=== PATIENT | male | born 1975 | race Caucasian/White ===

== ENCOUNTER 2019-01-26 11:57 | Emergency (ER) | payer SELFPAY ==
[2019-01-26] MEDS ORDERED: Ketorolac 60 MG/2 ML SDV IM ONE (12:17)
[2019-01-26] MEDS ORDERED: Ondansetron 4 MG Tab.DIS PO ONE (12:20)
--- NOTE | 2019-01-26 12:26 | EDM.PDOC ---
ED HPI GENERAL MEDICAL PROBLEM - General Chief Complaint: Abdominal Pain Stated Complaint: LOTS OF PAIN IN ??? Time Seen by Provider: 01/26/19 12:15 Source of Information: Reports: Patient, Old Records, RN History Limitations: Reports: No Limitations - History of Present Illness INITIAL COMMENTS - FREE TEXT/NARRATIVE: 43 yo male presents with LLQ abdominal pain that radiates from his L flank to his L testicle. Has nausea without vomiting. No fever. Pain began about a week ago and was intermittent initially, now constant since 0300h today. No hx of kidney stones. Pain not worse with coughing. Onset: Gradual Onset Date: 01/19/19 Duration: Week(s): (1), Constant (today only, was intermittent before that. ), Getting Worse Location: Reports: Abdomen (L sided), Pelvis (radiates to L testicle. ) Quality: Reports: Ache Severity: Moderate Improves with: Reports: Rest Worsens with: Reports: Movement (or lying) Associated Symptoms: Reports: Nausea/Vomiting (no vomiting). Denies: Cough, Fever/Chills, Rash, Shortness of Breath Treatments EVENT ORGANIZER: Reports: Other (see below) (none) Right Lower Abdomen Pain Score (Numeric/FACES): 10 Left Abdomen Pain Score (Numeric/FACES): 10 - Related Data Allergies Allergy/AdvReac Type Severity Reaction Status Date / Time sulfamethoxazole Allergy Rash Verified 01/26/19 12:11 [From Bactrim] trimethoprim [From Bactrim] Allergy Rash Verified 01/26/19 12:11 Home Meds: Home Meds traMADol [Ultram] 50 mg PO Q6H PRN 12/31/14 [History] Past Medical History Gastrointestinal History: Reports: Gastritis, GERD Genitourinary History: Reports: Prostate Disorder Psychiatric History: Reports: Anxiety - Past Surgical History Other Male Surgeries/Procedures: perineal cyst removal Social & Family History - Tobacco Use Smoking Status *Q: Current Every Day Smoker Years of Tobacco use: 20 Packs/Tins Daily: 1 - Caffeine Use Caffeine Use: Reports: Coffee, Soda - Recreational Drug Use Recreational Drug Use: No ED ROS GENERAL - Review of Systems Review Of Systems: See Below Constitutional: Reports: No Symptoms HEENT: Reports: No Symptoms Respiratory: Reports: No Symptoms Cardiovascular: Reports: No Symptoms GI/Abdominal: Reports: Abdominal Pain (L sided), Nausea. Denies: Black Stool, Bloody Stool, Constipation, Diarrhea, Distension, Hematemesis, Hematochezia, Melena, Vomiting : Reports: Flank Pain (L flank), Other (L testicle tender) Musculoskeletal: Reports: No Symptoms Skin: Reports: No Symptoms Neurological: Reports: No Symptoms ED EXAM, GI/ABD - Physical Exam Exam: See Below Exam Limited By: No Limitations General Appearance: Alert, WD/WN, Mild Distress Eyes: Bilateral: Normal Appearance Ears: Normal External Exam, Normal Canal, Hearing Grossly Normal Nose: Normal Inspection, No Blood Throat/Mouth: Normal Inspection, Normal Oropharynx, Normal Voice, No Airway Compromise, Other (poor dentition). No: Normal Teeth Head: Atraumatic, Normocephalic Neck: Normal Inspection Respiratory/Chest: No Respiratory Distress, Lungs Clear, Normal Breath Sounds, No Accessory Muscle Use Cardiovascular: Regular Rate, Rhythm, No Edema GI/Abdominal Exam: Normal Bowel Sounds, Soft, No Distention, Rebound, Tender ( LLQ). No: Non-Tender, Distended, Guarding, Rigid, Hernia, Mass Back Exam: Normal Inspection Extremities: Normal Inspection, Normal Range of Motion, Non-Tender, No Pedal Edema Neurological: Alert, Oriented, CN II-XII Intact, Normal Cognition, No Motor/ Sensory Deficits Psychiatric: Normal Affect, Normal Mood Skin Exam: Warm, Dry, Intact, Normal Color, No Rash Course - Vital Signs Text/Narrative:: Declined CT for now due to no insurance. Last Recorded V/S: Last Vital Signs Temp 35.4 C 01/26/19 12:10 Pulse 88 01/26/19 13:22 Resp 18 01/26/19 13:22 BP 125/88 01/26/19 13:22 Pulse Ox 99 01/26/19 13:22 - Orders/Labs/Meds Orders: Active Orders 24 hr Category Date Time Status Abdomen Pelvis wo Cont [CT] Stat Exams 01/26/19 14:36 Stop Req Labs: Laboratory Tests 01/26/19 01/26/19 01/26/19 Range/Units 12:25 12:25 14:07 WBC 11.0 (4.5-11.0) K/uL RBC 4.66 (4.30-5.90) M/uL Hgb 14.0 (12.0-15.0) g/dL Hct 40.4 (40.0-54.0) % MCV 87 (80-98) fL MCH 30 (27-31) pg MCHC 35 (32-36) % Plt Count 121 L (150-400) K/uL Sodium 136 L (140-148) mmol/L Potassium 4.4 (3.6-5.2) mmol/L Chloride 102 (100-108) mmol/L Carbon Dioxide 24 (21-32) mmol/L Anion Gap 14.4 H (5.0-14.0) mmol/L BUN 19 H (7-18) mg/dL Creatinine 0.9 (0.8-1.3) mg/dL Est Cr Clr Drug Dosing 122.07 mL/min Estimated GFR (MDRD) > 60 (>60) Glucose 140 H (74-106) mg/dL Calcium 8.9 (8.5-10.1) mg/dL C-Reactive Protein 0.10 (0.0-0.3) mg/dL Urine Color Yellow (YELLOW) Urine Appearance Clear (CLEAR) Urine pH 7.0 (5.0-8.0) Ur Specific [place] 1.025 (1.008-1.030) Urine Protein Negative (NEGATIVE) mg/dL Urine Glucose (UA) Negative (NEGATIVE) mg/dL Urine Ketones Trace H (NEGATIVE) mg/dL Urine Occult Blood Trace-intact H (NEGATIVE) Urine Nitrite Negative (NEGATIVE) Urine Bilirubin Negative (NEGATIVE) Urine Urobilinogen 0.2 (0.2-1.0) EU/dL Ur Leukocyte Esterase Negative (NEGATIVE) Urine RBC 5-10 H (0-5) Urine WBC 0-5 (0-5) Ur Epithelial Cells Few Amorphous Sediment Few Urine Bacteria Rare Urine Mucus Few Meds: Medications Discontinued Medications Generic Name Dose Route Start Last Admin Trade Name Freq PRN Reason Stop Dose Admin Ketorolac Tromethamine 60 mg 01/26/19 12:17 01/26/19 12:24 Toradol IM 01/26/19 12:18 60 mg ONETIME ONE Administration Ondansetron HCl 4 mg 01/26/19 12:20 01/26/19 12:24 Zofran Odt PO 01/26/19 12:21 4 mg ONETIME ONE Administration Oxycodone/Acetaminophen 1 tab 01/26/19 14:27 01/26/19 14:42 Percocet 325-5 Mg PO 01/26/19 14:28 1 tab ONETIME ONE Administration Departure - Departure Time of Disposition: 14:45 Disposition: Home, Self-Care 01 Condition: Fair Clinical Impression: Ureterolithiasis - Discharge Information *PRESCRIPTION DRUG MONITORING PROGRAM REVIEWED*: No *COPY OF PRESCRIPTION DRUG MONITORING REPORT IN PATIENT DONALD: No Instructions: Kidney Stones, [id number] Referrals: Deedee Lanza PA [Primary Care Provider] - Forms: ED Department Discharge Additional Instructions: Drink ample fluids. Strain your urine and save any sediment. Take ibuprofen 600 mg every 6 hrs with food starting after 7:30 pm tonight. For added relief use either extra strength acetaminophen OR Leroy. Also, take Flomax once a day to make stone passage easier. Recheck in the clinic in 2 days, turn in your stone for testing through your doctor. - My Orders Last 24 Hours: My Active Orders 01/26/19 14:36 Abdomen Pelvis wo Cont [CT] Stat - Assessment/Plan Last 24 Hours: My Active Orders 01/26/19 14:36 Abdomen Pelvis wo Cont [CT] Stat
[2019-01-26 13:24] VITALS: BP 125/88; PULSE 88
[2019-01-26] MEDS ORDERED: Acetaminophen/oxyCODONE 325-5 MG Tab PO ONE (14:27)
== END 2019-01-26 15:07 | disposition home or self-care (01) ==
LOC: JP.ED 11:57
DX: N20.1 Calculus of ureter (principal); F17.210 Nicotine dependence, cigarettes, uncomplicated; Z88.2 Allergy status to sulfonamides; Z88.1 Allergy status to other antibiotic agents
CPT/HCPCS: 36415; 80048; 81001; 85027; 86140; 96372; 99284; A9270; J1885; 99283

== ENCOUNTER 2019-12-07 04:25 | Emergency (ER) | payer SELFPAY ==
[2019-12-07 04:39] VITALS: BP 147/104; PULSE 84
[2019-12-07] MEDS ORDERED: Ketorolac 30 MG/ML SDV IVPUSH ONE (04:50)
[2019-12-07] MEDS ORDERED: Sodium Chloride 0.9% 10 ML Syringe FLUSH PRN (04:50)
[2019-12-07] MEDS ORDERED: Sodium Chloride 0.9% 1,000 ML IV ONE (04:52)
[2019-12-07] MEDS ORDERED: Acetaminophen/HYDROcodone 325-5 MG Tab PO ONE (06:04)
--- NOTE | 2019-12-07 06:10 | EDM.PDOC ---
ED HPI GENERAL MEDICAL PROBLEM - General Chief Complaint: Abdominal Pain Stated Complaint: ABD PAIN Time Seen by Provider: 12/07/19 04:40 Source of Information: Reports: Patient, Old Records History Limitations: Reports: No Limitations - History of Present Illness INITIAL COMMENTS - FREE TEXT/NARRATIVE: Rik presents with acute onset of right abdominal and flank pain radiating into his groin. He does have a history for recent antibiotic use for an infected tooth 3 weeks ago, but denies any nausea, vomiting, or diarrhea. He denies any urgency, frequency or burning with urination. He also has a past medical history for ureterolithiasis last year. Onset: Sudden Duration: Getting Worse Location: Reports: Abdomen, Radiates to (groin and right testicle) Quality: Reports: Ache, Sharp, Throbbing Severity: Severe Improves with: Reports: None Worsens with: Reports: Movement Associated Symptoms: Reports: Diaphoresis Right Abdominal Pain Score (Numeric/FACES): 10 - Related Data Allergies Allergy/AdvReac Type Severity Reaction Status Date / Time sulfamethoxazole Allergy Rash Verified 12/07/19 04:32 [From Bactrim] trimethoprim [From Bactrim] Allergy Rash Verified 12/07/19 04:32 Home Meds: Home Meds traMADol [Ultram] 50 mg PO Q6H PRN 12/31/14 [History] Ondansetron [Zofran ODT] 4 mg PO Q6H PRN #7 tab.dis 01/26/19 [Rx] Past Medical History HEENT History: Reports: Impaired Vision Gastrointestinal History: Reports: Gastritis, GERD Genitourinary History: Reports: Prostate Disorder, Renal Calculus Psychiatric History: Reports: Anxiety - Infectious Disease History Infectious Disease History: Reports: Chicken Pox - Past Surgical History Other Male Surgeries/Procedures: perineal cyst removal Social & Family History - Tobacco Use Smoking Status *Q: Current Every Day Smoker Years of Tobacco use: 20 Packs/Tins Daily: 1 - Caffeine Use Caffeine Use: Reports: Coffee, Soda - Recreational Drug Use Recreational Drug Use: No ED ROS GENERAL - Review of Systems Review Of Systems: See Below Constitutional: Reports: No Symptoms HEENT: Reports: No Symptoms Respiratory: Reports: No Symptoms Cardiovascular: Reports: No Symptoms Endocrine: Reports: No Symptoms GI/Abdominal: Reports: Abdominal Pain (right flank, RLQ) : Reports: Flank Pain, Pain Musculoskeletal: Reports: No Symptoms Skin: Reports: No Symptoms Neurological: Reports: No Symptoms Psychiatric: Reports: No Symptoms Hematologic/Lymphatic: Reports: No Symptoms Immunologic: Reports: No Symptoms ED EXAM, RENAL/ - Physical Exam Exam: See Below Exam Limited By: No Limitations General Appearance: Anxious, Moderate Distress Throat/Mouth: Normal Inspection, Normal Lips, Normal Teeth, Normal Oropharynx, Normal Voice, No Airway Compromise Head: Atraumatic, Normocephalic Neck: Normal Inspection, Supple, Non-Tender, Full Range of Motion Respiratory/Chest: No Respiratory Distress, Lungs Clear, Normal Breath Sounds, No Accessory Muscle Use, Chest Non-Tender Cardiovascular: Normal Peripheral Pulses, Regular Rate, Rhythm, No Edema, No Murmur GI/Abdominal: Normal Bowel Sounds, Guarding (RUQ, RLQ), Tender. No: Rigid, Rebound (Male) Exam: Deferred Rectal (Males) Exam: Deferred Back Exam: Normal Inspection, Full Range of Motion, CVA Tenderness (R) Extremities: Normal Inspection, Normal Range of Motion, Non-Tender Neurological: Alert, Oriented, Normal Cognition, No Motor/Sensory Deficits Psychiatric: Normal Affect, Anxious Skin Exam: Warm, Dry, Intact, Normal Color, No Rash Lymphatic: No Adenopathy Course - Vital Signs Last Recorded V/S: Last Vital Signs Temp 36.7 C 12/07/19 04:39 Pulse 84 12/07/19 04:39 Resp 18 12/07/19 04:39 BP 147/104 H 12/07/19 04:39 Pulse Ox 100 12/07/19 04:39 - Orders/Labs/Meds Orders: Active Orders 24 hr Category Date Time Status Abdomen Pelvis wo Cont [CT] Stat Exams 12/07/19 04:50 Taken UA W/MICROSCOPIC [URIN] Stat Lab 12/07/19 05:45 Ordered Acetaminophen/HYDROcodone [[place] 325-5 MG] Med 12/07/19 06:04 Once 1 tab PO ONETIME ONE Sodium Chloride 0.9% [Saline Flush] Med 12/07/19 04:50 Active 10 ml FLUSH ASDIRECTED PRN Saline Lock Insert [OM.PC] Routine Oth 12/07/19 04:50 Ordered Medication Orders Sodium Chloride (Saline Flush) 10 ml FLUSH ASDIRECTED PRN PRN Reason: Keep Vein Open Last Admin: 12/07/19 05:09 Dose: 10 ml Documented by: IGNACIO Labs: Laboratory Tests 12/07/19 12/07/19 Range/Units 04:55 04:55 WBC 8.7 (4.5-11.0) K/uL RBC 4.82 (4.30-5.90) M/uL Hgb 14.5 (12.0-15.0) g/dL Hct 40.9 (40.0-54.0) % MCV 85 (80-98) fL MCH 30 (27-31) pg MCHC 36 (32-36) % Plt Count 128 L (150-400) K/uL Neut % (Auto) 69 H (36-66) % Lymph % (Auto) 14 L (24-44) % [place] % (Auto) 15 H (2-6) % Eos % (Auto) 2 (2-4) % Baso % (Auto) 0 (0-1) % Sodium 141 (140-148) mmol/L Potassium 4.0 (3.6-5.2) mmol/L Chloride 105 (100-108) mmol/L Carbon Dioxide 27 (21-32) mmol/L Anion Gap 8.6 (5.0-14.0) mmol/L BUN 14 (7-18) mg/dL Creatinine 1.0 (0.8-1.3) mg/dL Est Cr Clr Drug Dosing 108.75 mL/min Estimated GFR (MDRD) > 60 (>60) Glucose 111 H (74-106) mg/dL Calcium 8.5 (8.5-10.1) mg/dL Total Bilirubin 1.1 H (0.2-1.0) mg/dL AST 18 (15-37) U/L ALT 18 (12-78) U/L Alkaline Phosphatase 82 (46-116) U/L Total Protein 6.6 (6.4-8.2) g/dL Albumin 4.0 (3.4-5.0) g/dL Globulin 2.6 (2.3-3.5) g/dL Albumin/Globulin Ratio 1.5 (1.2-2.2) Meds: Medications Generic Name Dose Route Start Last Admin Trade Name Freq PRN Reason Stop Dose Admin Sodium Chloride 10 ml 12/07/19 04:50 12/07/19 05:09 Saline Flush FLUSH 10 ml ASDIRECTED PRN Administration Keep Vein Open Discontinued Medications Generic Name Dose Route Start Last Admin Trade Name Beata PRN Reason Stop Dose Admin Sodium Chloride 1,000 mls @ 1,000 mls/hr 12/07/19 04:52 12/07/19 05:44 Normal Saline IV 12/07/19 05:51 1,000 mls/hr .BOLUS ONE Administration Ketorolac Tromethamine 30 mg 12/07/19 04:50 12/07/19 05:09 Toradol IVPUSH 12/07/19 04:51 30 mg ONETIME ONE Administration - Re-Assessments/Exams Free Text/Narrative Re-Assessment/Exam: 12/07/19 06:11 Patient was initially given toradol 30mg IV for pain with improvement, but the pain returned after an hour and he was subsequently given [place] 5/325mg by mouth for pain. Free Text/Narrative Re-Assessment/Exam: 12/07/19 06:23 CT abdomen and pelvis wet read - 2.2mm stone in the distal right ureter about 2cm from the right UVJ causing moderate hydronephrosis and hydroureter. Departure - Departure Time of Disposition: 06:45 Disposition: Home, Self-Care 01 Condition: Good Clinical Impression: Ureterolithiasis, Kidney stone on right side - Discharge Information *PRESCRIPTION DRUG MONITORING PROGRAM REVIEWED*: Yes *COPY OF PRESCRIPTION DRUG MONITORING REPORT IN PATIENT DONALD: No Instructions: Kidney Stones, [id number], Pain Medicine Instructions, [id number] Referrals: PCP,None [Primary Care Provider] - Additional Instructions: I have enclosed a script for hydrocodone pain medicine to help control your pain. Please use it sparingly. Discontinue the intake of Monster and Mountain Dew / Pepsi as these contribute the the stone formation Sepsis Event Note (ED) - Evaluation Sepsis Screening Result: No Definite Risk - Focused Exam Vital Signs: Vital Signs Temp Pulse Resp BP Pulse Ox 12/07/19 04:39 36.7 C 84 18 147/104 H 100 12/07/19 04:38 36.7 C 84 18 147/104 H 100 - My Orders Last 24 Hours: My Active Orders 12/07/19 04:50 Abdomen Pelvis wo Cont [CT] Stat Sodium Chloride 0.9% [Saline Flush] 10 ml FLUSH ASDIRECTED PRN Saline Lock Insert [OM.PC] Routine 12/07/19 05:45 UA W/MICROSCOPIC [URIN] Stat 12/07/19 06:04 Acetaminophen/HYDROcodone [[place] 325-5 MG] 1 tab PO ONETIME ONE - Assessment/Plan Last 24 Hours: My Active Orders 12/07/19 04:50 Abdomen Pelvis wo Cont [CT] Stat Sodium Chloride 0.9% [Saline Flush] 10 ml FLUSH ASDIRECTED PRN Saline Lock Insert [OM.PC] Routine 12/07/19 05:45 UA W/MICROSCOPIC [URIN] Stat 12/07/19 06:04 Acetaminophen/HYDROcodone [[place] 325-5 MG] 1 tab PO ONETIME ONE
--- NOTE | 2019-12-07 06:35 | CRLCT ---
INDICATION: Acute right flank pain. TECHNIQUE: CT of the abdomen and pelvis without intravenous contrast. Coronal and sagittal reconstructions. COMPARISON: None. FINDINGS: There is a 3 mm obstructing stone at the right ureterovesicular junction (series 2, image 29 in series 3, image 78). Moderate upstream right hydroureteronephrosis in inflammatory perinephric stranding. No other urinary calculi. No left hydronephrosis or ureteral dilation. The bladder is under distended. Mildly enlarged prostate with calcifications. The unenhanced liver, gallbladder, spleen, pancreas, and adrenal glands are normal in appearance. No bowel dilation. Negative appendix. No intraperitoneal free air or fluid. No lymphadenopathy. The bones are unremarkable. The lung bases are clear. IMPRESSION: 3 mm obstructing stone at the right UVJ with moderate upstream right hydroureteronephrosis. Please note that all CT scans at this facility use dose modulation, iterative reconstruction, and/or weight-based dosing when appropriate to reduce radiation dose to as low as reasonably achievable. Dictated by Ce Rogers MD @ Dec 07 2019 6:27AM Signed by Dr. Ce Rogers @ Dec 07 2019 6:34AM
== END 2019-12-07 06:45 | disposition home or self-care (01) ==
LOC: JP.ED 04:25
DX: N13.2 Hydronephrosis with renal and ureteral calculous obstruction (principal); F17.210 Nicotine dependence, cigarettes, uncomplicated; Z88.1 Allergy status to other antibiotic agents; Z88.2 Allergy status to sulfonamides
CPT/HCPCS: 36415; 74176; 80053; 81001; 85025; 96374; 99284; A9270; J1885; J7030